=== PATIENT | male | born 1975 | race Caucasian/White ===

== ENCOUNTER 2024-03-15 10:58 | Emergency (ER) | payer OTHER, SELFPAY ==
--- NOTE | ~2024-03-15 | XR_ITS ---
XR knee RT 3V Ordering provider: Siria David NP History: . swollen red and painful,no injury . Comparison: None. FINDINGS: BONES: No acute fracture or dislocation. JOINT SPACES: Normal. Marginal osteophytes in the patella. SOFT TISSUES: Soft tissue density seen around the patellar tendon which may indicate tendinitis or ce llulitis. Clinical correlation advised. IMPRESSION: No acute osseous abnormality right knee. Mild osteoarthritic changes. Soft tissue density in the area of the patellar tendon. Clinical correlation and if warranted MRI is advised. Reviewed, dictated and finalized at location A. N RESOURCES INTERN IMPRESSION: No acute osseous abnormality right knee. Mild osteoarthritic changes. Soft tissue density in the area of the patellar tendon. Clinical correlation an d if warranted MRI is advised.
[2024-03-15 11:09] VITALS: BP 167/108; PULSE 63; RESP 19; TEMP 36.4; O2SAT 100
--- NOTE | 2024-03-15 11:36 | ED_ITS ---
HPI - Extremity Injury (Lower) General Chief Complaint: Extremity Problem,Nontraumatic Stated Complaint: R KNEE PAIN/SWELLING/WARM Time Seen by Provider: 03/15/24 11:30 Source: patient, RN notes reviewed and old records reviewed Mode of arrival: ambulatory Limitations: no limitations History of Present Illness HPI Narrative: 48 year old male patient presents to [facility] care with complaints of right knee pain redness, swelling, and warmth for the past 4 days. Patient reports that pain is on media and lateral aspect of his right knee going to the bottom of his knee reports no known injury to his knee. Patient report that he has had previous gout to his right knee and thinks this is a flair of his gout, patient reports that he drank some beer over the weekend and he ate red meat last night. Patient reports that he has taken Predisone in the past which has worked to resolve his gout flare. Patient states that at one time he was on Allopurinol but he found that it bothered his stomach. MD complaint: other (right knee pain) Onset (ago): day(s) (4) Severity scale (1-10): 6 Exacerbating factors: weight bearing and movement Associated symptoms: swelling and other (pain warmth) Review of Systems Review of Systems: CONSTITUTIONAL: Denies fever, chills, or sweats. EYES: Denies visual changes, redness, or discharge. ENT: Denies rhinorrhea, congestion, sore throat, or otalgia. CARDIOVASCULAR: Denies chest pain, palpitations, or edema. RESPIRATORY: Denies cough or dyspnea. GASTROINTESTINAL: Denies abdominal pain, nausea, vomiting, or diarrhea. GENITOURINARY: Denies dysuria or hematuria. SKIN: Denies rash or itching. MUSCULOSKELETAL: Denies back pain,Report positive right knee joint pain with redness, swelling and some warmth, or myalgia. NEUROLOGIC: Denies headache, numbness, or weakness. PSYCHIATRIC: Denies anxiety or depression. All systems reviewed & are unremarkable except as noted in HPI and below PMFSH Past Medical History Medical History Gout Hypertension Social History Social History Smoking status: Never smoker Alcohol intake: current Alcohol use details: social Substance use type: does not use Living arrangements: with family Gender identity (if verbalized by the patient): Male Comments At time of signature, agree with nursing past medical, surgical, social and family history. There is no relevant family history pertinent to the presenting complaint Exam Narrative: GENERAL: Well-appearing, well-nourished, and in no acute distress. HEAD: Normocephalic, atraumatic. EYES: PERRLA and EOMI. ENT: Nares clear, no rhinorrhea or epistaxis. Mucous membranes moist.TM's normal throat without redness or swelling CHEST: Clear to auscultation. No respiratory distress.SAO2 100% on room air HEART: Regular rate and rhythm. No murmur heard. Normal peripheral pulses. ABDOMEN: Soft, nontender, nondistended, normal active bowel sounds. EXTREMITIES: Normal range of motion. No edema.Exception noted with pain to the anterior aspect of right knee with redness warm and swelling noted, sensation and circulation intact with increased pain to right knee with ambulation and movement. SKIN: Warm, dry, no rash. NEURO: No focal deficits. Alert and oriented x3. Course Course Emergency Course: Patient is aware of diagnosis, understands and agrees to treatment plan.? Anticipatory guidance given.? Patient agrees to follow-up as directed and is aware of reasons to seek care at the emergency department. Portions of this record may have been created with voice recognition software Level of Care: Express Care Visit Vital Signs Vital signs: Vital Signs Temperature 36.4 C 03/15/24 11:09 Pulse Rate 63 03/15/24 11:09 Respiratory Rate 19 03/15/24 11:09 Blood Pressure 167/108 H 03/15/24 11:09 Pulse Oximetry 100 03/15/24 11:09 Oxygen Delivery Room Air 03/15/24 11:09 Temperature 36.4 C 03/15/24 11:09 Pulse Rate 63 03/15/24 11:09 Respiratory Rate 19 03/15/24 11:09 Blood Pressure 167/108 H 03/15/24 11:09 Pulse Oximetry 100 03/15/24 11:09 Oxygen Delivery Room Air 03/15/24 11:09 Reviewed MDM - Extremity Injury (Lower) Differential Diagnosis Differential diagnosis: Likely acute internal derangement of knee and other (tendonitis of right knee, gout, pain right knee) Medical Records Attestation: I reviewed the patient's medical records. Imaging Data Attestation: I personally reviewed and interpreted this imaging study as follows: My impression: soft tissue density seen around patellar tendon which might indicate tendonitis or cellulitis, no acute osseous findings, mild osteoarthritis changes Radiologist's impression: [facility] [address] [place] [address] [place] [address] XRay Report Signed Patient: Min Tavarez : 1975 MR#: [id number] Age: 48 Acct:[id number] Loc: [id number] ADM Date: 03/15/24Attending Dr: Ordering Physician: Siria David APRN Date of Service: 03/15/24 Procedure(s): XR knee RT 3V Accession Number(s): [id number] cc: Ricardo,Carlotta; Siria David APRN~ XR knee RT 3V Ordering provider: Siria David NP History: . swollen red and painful,no injury . Comparison: None. FINDINGS: BONES: No acute fracture or dislocation. JOINT SPACES: Normal. Marginal osteophytes in the patella. SOFT TISSUES: Soft tissue density seen around the patellar tendon which may indicate tendinitis or cellulitis. Clinical correlation advised. IMPRESSION: No acute osseous abnormality right knee. Mild osteoarthritic changes. Soft tissue density in the area of the patellar tendon. Clinical correlation and if warranted MRI is advised. Reviewed, dictated and finalized at location A. ECT BUILDER Dictated By: Neto Escudero MD 03/15/24 1156 Signed By: <Electronically signed by Neto Escudero MD in OV> Critical Care Time Critical Care Time Critical Care Time: No Discharge Plan Discharge Clinical Impression: Acute gout of right knee Patient Disposition: Home, Self-Care Condition: Stable Instructions: Antibiotic Form, Low Purine Diet (ED), Gout (ED) Additional Instructions: Elastic wrap or orthopedic splint as directed for comfort for the next 5-7 days Steroid taper as prescribed take with food Tylenol for lesser pain Ibuprofen regularly for the next 2-3 days for the inflammation Follow-up with PCP if further problems or concerns need follow up blood work and 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 Follow-up with PCP in 7-10 days or sooner if needed Follow up with PCP soon in regards to your blood pressure which is elevated above threshold for referral. Blood pressure above 120/80 may indicate pre-hypertension.167/108 Prescriptions: New prednisone 10 mg tablet 10 mg PO DIRECTED Qty: 21 0RF Rx Instructions: see taper instructions 6 tabs day 1, 5 tabs day 2, 4 tabs day 3, 3 tabs day 4, 2 tabs day 5, 1 tab day 6 Follow-up/Referrals: Ricardo,Carlotta [Other] Time of Disposition: 12:14 Quality [place] Coma Scale Eyes: Open Verbal: Oriented and Alert Motor: Follows Commands [place] Coma Total Score: 15
== END 2024-03-15 12:16 | disposition home or self-care (01) ==
PROVIDERS: Emergency Provider Registered Nurse
DX: M10.9 Gout, unspecified (principal); I10 Essential (primary) hypertension
CPT/HCPCS: 73562; 99213; G0463